=== PATIENT | male | born 1965 | race Caucasian/White ===

== ENCOUNTER 2018-05-27 08:06 | Emergency (ER) | payer SELFPAY ==
[2018-05-27] MEDS ORDERED: Albuterol/Ipratropium NEB.SOL* Albuterol 2.5 MG/Ipratropium 0.5 MG 3 ML INH ONE (08:32)
--- NOTE | 2018-05-27 08:35 | UC ---
General HPI - HPI Summary HPI Summary: 52 yo brought with family member c/o cough, sob progressively worse x 3 days. Unk fever. + sore throat. [place] Works as a rolloff truck driver. Has been trying to bring up mucus but not able. No GI Issues. No cp perse but hurts with cough. No rash. No GI c/os. - History of Current Complaint Chief Complaint: UCRespiratory Stated Complaint: CONGESTION COUGH Time Seen by Provider: 05/27/18 08:35 Hx Obtained From: Patient Pain Intensity: 6 - Allergy/Home Medications Allergies/Adverse Reactions: Allergies Allergy/AdvReac Type Severity Reaction Status Date / Time No Known Allergies Allergy Verified 05/27/18 08:32 Home Medications: Home Medications Esomeprazole Magnesium [Nexium] 40 mg PO DAILY 05/27/18 [History Confirmed 05/27] Metoprolol Succinate [Metoprolol Succinate ER] 25 mg PO DAILY 05/27/18 [History Confirmed 05/27/18] PMH/Surg Hx/FS Hx/Imm Hx Previously Healthy: Yes - htn - Surgical History Surgical History: Yes Surgery Procedure, Year, and Place: left arm surgery, hernia - Family History Known Family History: Positive: Hypertension - Social History Alcohol Use: None Substance Use Type: None Smoking Status (MU): Light Every Day Tobacco Smoker Household Exposure Type: Cigarettes Review of Systems All Other Systems Reviewed And Are Negative: Yes Constitutional: Positive: Fatigue Skin: Positive: Negative Eyes: Positive: Negative ENT: Positive: Sore Throat, Nasal Discharge, Sinus Congestion Respiratory: Positive: Shortness Of Breath, Cough Cardiovascular: Positive: Negative Gastrointestinal: Positive: Negative Genitourinary: Positive: Negative Motor: Positive: Negative Neurovascular: Positive: Negative Musculoskeletal: Positive: Negative Neurological: Positive: Negative Psychological: Positive: Negative Is Patient Immunocompromised?: No Physical Exam Triage Information Reviewed: Yes Appearance: Well-Nourished - sitting up, conversing easily and appropriately. looks tired. Nontoxic. Able to converse in short sentances. Vital Signs: Initial Vital Signs Temp 97.7 F 05/27/18 08:24 Pulse 103 05/27/18 08:24 Resp 28 05/27/18 08:24 BP 148/67 05/27/18 08:24 Pulse Ox 94 05/27/18 08:24 Vital Signs Reviewed: Yes Eye Exam: Normal ENT: Positive: Pharyngeal erythema, Nasal congestion, TM dull, Other - trachea midline Neck exam: Normal Neck: Positive: Supple Respiratory Exam: Other - BS + rhonchi and ins/ exp wheezing. + rhonchorus cough. Minimal production. Cardiovascular Exam: Other - HR noted, 103, correlates with L radial pulse. Nondiaphoretic. Abdominal Exam: Normal Abdomen Description: Positive: Nontender Musculoskeletal: Positive: Edema @ - BLE dep mild edema. Moves x 4 ext's Neurological Exam: Normal - grossly nonfocal Psychological Exam: Normal - conversing easily and appopriately Skin Exam: Normal - no visible or reported rash Course/Dx - Course Course Of Treatment: duoneb x 1 solumedrol 125mg I x 1. Inf ns - neg RStrp - neg chest xray - nad (see report) D/w pt and family coa / tx plan. Express understanding and agreement. Repeat exam 10:00 - improved wheezing but still tight. Still feels bad. [95% o2 at d/c D/w Lindsay Vera NP 10:10 at [facility]. Mr. Castanon declines EMS, mom will drive. - Diagnoses Provider Diagnosis: Wheezing, Shortness of breath, Cough Discharge - Sign-Out/Discharge Documenting (check all that apply): Patient Departure All imaging exams completed and their final reports reviewed: No Studies - Discharge Plan Condition: Guarded Disposition: HOME-RECOMMEND TO ED Patient Education Materials: Wheezing (ED), Dyspnea (ED) Referrals: No Primary Care Phys,NOPCP [Primary Care Provider] - Additional Instructions: Please go to the Emergency Department. Stop and call 911 for any problems en route. Influenza nasal swab (a/b) - negative strep test - negative. Chest xray - ok (see report) - Billing Disposition and Condition Condition: GUARDED Disposition: Home-Recommend to ED
[2018-05-27] MEDS ORDERED: methylPREDNISolone 125 MG* 2 ML VIAL IM ONE (08:41)
[2018-05-27 09:01] LABS: Influenza A Molecular NEGATIVE (Negative); Influenza B Molecular NEGATIVE (Negative)
[2018-05-27 10:09] VITALS: BP 135/67
== END 2018-05-27 10:23 | disposition home health service (06) ==
LOC: UCCORT 08:06
DX: R06.2 Wheezing (principal); R06.02 Shortness of breath; R05 Cough; Z79.899 Other long term (current) drug therapy; I10 Essential (primary) hypertension; F17.210 Nicotine dependence, cigarettes, uncomplicated
CPT/HCPCS: 71046; 87651; 96372; 99202; A9270-GY; G0463; J2930